=== PATIENT | female | born 1970 | race Two or more races ===

== ENCOUNTER 2022-11-16 17:16 | Emergency (ER) | payer SELFPAY ==
[~2022-11-16] VITALS: Ht 172.7 cm; Wt 94.0 kg
[2022-11-16 18:16] LABS: Basophils # (auto) 0.1 10 ^3/uL (0-0.2); Basophils % (auto) 0.8 % (0.0-2.0); Eosinophils # (auto) 0.1 10 ^3/uL (0-0.8); Lymphocytes # (auto) 2.3 10 ^3/uL (0.4-5.4); Nucleated Red Blood Cells % 0.1 %
[2022-11-16 18:18] LABS: Eosinophils % (auto) 1.6 % (0.0-7.0); Hematocrit 39.1 % (36.0-46.0); Lymphocytes % (auto) 24.1 % (10.0-50.0); Mean Corpuscular Hemoglobin 26.1 pg (28.0-32.0); Mean Corpuscular Hgb Conc. 33.1 g/dL (32.0-36.0); Mean Corpuscular Volume 78.9 fL (80.0-100.0); Monocytes # (auto) 0.6 10 ^3/uL (0-1.3); Monocytes % (auto) 6.5 % (0.0-12.0); Neutrophils # (auto) 6.3 10 ^3/uL (1.6-8.6); Red Blood Cells 4.96 10^6/uL (4.0-5.20); Red Cell Distribution Width 16.5 % (11.8-14.3); White Blood Cell 9.4 10^3/uL (4.4-10.8)
[2022-11-16 18:21] LABS: Urine Bacteria NONE SEEN /hpf (None Seen); Urine Blood Negative /uL (Negative); Urine Budding Yeast OCCASIONAL /hpf (None Seen); Urine Mucus FEW (None Seen); Urine Specific Gravity 1.022 (1.001-1.035); Urine WBC 1 /hpf (0 - 5)
[2022-11-16 18:44] LABS: Albumin 3.6 g/dL (3.4-5.0); BUN/Creatinine Ratio 23.3; Calcium 9.6 mg/dL (8.5-10.1)
[2022-11-16 18:47] LABS: Bilirubin, Total 0.2 mg/dL (0.2-1.0); Total Protein 7.3 g/dL (6.4-8.2)
[2022-11-16] MEDS ORDERED: LORazepam 0.5 MG TAB PO ONE (19:15)
[2022-11-16] MEDS ORDERED: FAMOTIDINE 20 MG TAB PO ONE (19:15)
[2022-11-16] MEDS ORDERED: IOHEXOL 350 MG/ML 100ML IJ ONE (21:16)
[2022-11-16] MEDS ORDERED: ACET-1079 PO (23:36)
[2022-11-16] MEDS ORDERED: FAMO20TA10 PO (23:36)
[2022-11-17 00:14] VITALS: BP 126/78
== END 2022-11-17 00:15 | disposition home or self-care (01) ==
LOC: ER 17:16
DX: R07.89 Other chest pain (principal); D73.89 Other diseases of spleen; E11.9 Type 2 diabetes mellitus without complications; I10 Essential (primary) hypertension
CPT/HCPCS: 36415; 71045; 71260; 74177; 80053; 81001; 84484; 85025; 93005; 99285; Q9967